=== PATIENT | male | born 1985 | race Caucasian/White ===

== ENCOUNTER 2016-06-04 15:20 | Emergency (ER) | payer BC, OTHER ==
[2016-06-04 16:19] VITALS: BP 151/90
--- NOTE | 2016-06-04 18:03 | UC ---
Ear Complaint HPI - HPI Summary HPI Summary: 30 male presents today complaining of ear pain that began last night 06/04/16. Patient has been suffering from intensely itchy ear canals for the past year that has gotten worse over the past month or so. He was seen by his PCP who diagnosed him with eczema of the cancal b/l. He was prescribed ciprodex and states the itching and flakey skin has subsided but he developed a new onset of inflammation, pain, decreased hearing in the right ear and vertigo. Patient states it feels like his ear is draining but it is not actively draining. Denies sensitive skin, asthma, allergies. States pain was 10/10 last night and this morning. He has been taking the prescribed Ciprodex and taking ibuprofen for the pain which does give him some relief. Denies tinnitus or discharge. Describes pain as throbbing and aching. Denies sore throat, cough, congestion difficulty breathing and chest pain. - History of Current Complaint Chief Complaint: UCEar Stated Complaint: EAR PAIN Time Seen by Provider: 06/04/16 17:08 Hx Obtained From: Patient Onset/Duration: Sudden Onset Severity Initially: Mild Severity Currently: Moderate Pain Intensity: 9 Pain Scale Used: 0-10 Numeric Alleviating Factors: OTC Meds - mild relief Associated Signs/Symptoms: Positive: Hearing Loss, Swelling @ - right ear canal , tenderness on palpation of external ear - Allergies/Home Medications Allergies/Adverse Reactions: Allergies Allergy/AdvReac Type Severity Reaction Status Date / Time [facility] Allergy Rash Verified 06/04/16 16:19 Sulfamethoxazole Allergy Rash Verified 06/04/16 16:19 w/Trimethoprim [From [facility]] Home Medications: Home Medications Ciproflox/Dexameth OTIC.SUSP* [Ciprodex Otic*] 1 drop .SEE ORDER 06/04/16 [ History] Ibuprofen TAB* [Advil TAB*] 800 mg PO PRN 06/04/16 [History] PMH/Surg Hx/FS Hx/Imm Hx - Surgical History Surgical History: Yes Surgery Procedure, Year, and Place: APPENDECTOMY, WISDOM TEETH - Family History Known Family History: Positive: None - Social History Alcohol Use: Occasionally Alcohol Amount: 2-3 DRINKS/WEEK Substance Use Type: None Smoking Status (MU): Never Smoked Tobacco Review of Systems Constitutional: Negative Skin: Negative Eyes: Negative ENT: Ear Ache Respiratory: Negative Cardiovascular: Negative Gastrointestinal: Negative Genitourinary: Negative Motor: Negative Neurovascular: Negative Musculoskeletal: Negative Neurological: Headache Psychological: Negative All Other Systems Reviewed And Are Negative: Yes Physical Exam Triage Information Reviewed: Yes Appearance: Well-Appearing, No Pain Distress, Well-Nourished Vital Signs: Initial Vital Signs Temp 97.9 F 06/04/16 16:14 Pulse 80 06/04/16 16:14 Resp 18 06/04/16 16:14 BP 151/90 06/04/16 16:14 Pulse Ox 100 06/04/16 16:14 Vital Signs Reviewed: Yes Eyes: Positive: Conjunctiva Clear ENT: Positive: Normal ENT inspection, Pharynx normal, TM bulging - exudative lesion noted on TM's bilateral. external canal of right ear drum erythematous and inflammed. no discharge or falkey skin noted in either canal. no perforation in TM's., TM dull, TM red, Other: - some decreased hearing on right side, described as muffled but able to hear.. Negative: Pharyngeal erythema, Nasal congestion, Tonsillar swelling, Tonsillar exudate Neck: Positive: Supple, Nontender, No Lymphadenopathy Respiratory: Positive: Chest non-tender, Lungs clear, Normal breath sounds, No respiratory distress Cardiovascular: Positive: RRR, No Murmur, Pulses Normal Musculoskeletal Exam: Normal Neurological Exam: Normal Psychological Exam: Normal Skin Exam: Normal Ear Complaint Course/Dx - Course Course Of Treatment: patient will be given oral antibiotics and treated for otitis media. told to continue taking ciprodex for the next day however if symptoms are not improving or worseing to discontinue the drops and continue oral antibiotic only. warm compresses were suggested. continue ibuprofen for pain and inflammation. aware of signs of allergic reaction to medications. follow up with ENT is encouraged. - Differential Dx/Diagnosis Differential Diagnosis/HQI/PQRI: Otitis Externa, Otitis Media Provider Diagnoses: otitis media b/l, otitis externa right ear, eczema of ear canals b/l - Physician Notifications Discussed Patient Care With: Dr Casillas also examined patient and discussed plan of care with him Discharge - Discharge Plan Condition: Stable Disposition: HOME Prescriptions: Amoxicillin SUSP* 500 mg PO BID #1 bottle Ciproflox/Dexameth OTIC.SUSP* [Ciprodex OTIC.SUSP*] 4 drop .SEE ORDER BID #1 btl Patient Education Materials: Otitis Externa (ED), Otitis Media (ED) Referrals: RADHA Madrigal [Primary Care Provider] - Additional Instructions: Take medication as prescribed. Continue taking OTC ibuprofen to help with pain and inflammation. Continue taking prescribed ciprodex for the remaining doses unless symptoms worsen and do not improve. Discontinue the drops at this time and just continue taking oral antibiotic. If symptoms do not improve or worsen please return to . Follow up with ENT or primary care provider.
== END 2016-06-04 18:08 | disposition home or self-care (01) ==
LOC: UCEAST 15:20
DX: H66.93 Otitis media, unspecified, bilateral (principal); H60.91 Unspecified otitis externa, right ear; L30.9 Dermatitis, unspecified; Z88.1 Allergy status to other antibiotic agents; Z88.2 Allergy status to sulfonamides
CPT/HCPCS: 99212; G0463

== ENCOUNTER 2018-05-04 17:10 | Emergency (ER) | payer BC ==
[2018-05-04 17:58] VITALS: BP 132/74
--- NOTE | 2018-05-04 19:33 | UC ---
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 No elbow / wrist pain now, but it did hurt last night. + intermittent dysesthesia R 4th / 5th fingers. Pain radiates to post shoulder. No point neck pain. No loc. Has been taking ibuprofen (limited d/t recent hx idania d/t volume depletion) / acetaminophen. Took a old oxycodone this am w/o relief. - History of Current Complaint Chief Complaint: UCUpperExtremity Stated Complaint: RIGHT SHOULDER INJURY Time Seen by Provider: 05/04/18 19:29 Hx Obtained From: Patient Pain Intensity: 3 - Allergy/Home Medications Allergies/Adverse Reactions: Allergies Allergy/AdvReac Type Severity Reaction Status Date / Time cefaclor [From [facility]] Allergy Rash Verified 05/04/18 17:51 sulfamethoxazole Allergy Rash Verified 05/04/18 17:51 [From [facility]] trimethoprim [From [facility]] Allergy Rash Verified 05/04/18 17:51 Home Medications: Home Medications oxyCODONE/Acetamin 5/325 MG* [Percocet 5/325 TAB*] 1 tab ONCE 05/04/18 [History Confirmed 05/04/18] PMH/Surg Hx/FS Hx/Imm Hx Previously Healthy: Yes - see hpi - Surgical History Surgical History: Yes Surgery Procedure, Year, and Place: WISDOM TEETH. EAR TUBES. TONSILECTOMY - Family History Known Family History: Positive: None - Social History Alcohol Use: Occasionally Alcohol Amount: 2-3 DRINKS/WEEK Substance Use Type: None Smoking Status (MU): Never Smoked Tobacco Review of Systems All Other Systems Reviewed And Are Negative: Yes Constitutional: Positive: Negative Skin: Positive: Negative Eyes: Positive: Negative ENT: Positive: Negative Respiratory: Positive: Negative Cardiovascular: Positive: Negative Gastrointestinal: Positive: Negative Genitourinary: Positive: Negative Motor: Positive: Other - see hpi Neurovascular: Positive: Other - see hpi Musculoskeletal: Positive: Other: - see hpi Neurological: Positive: Other - see hpi Psychological: Positive: Negative Is Patient Immunocompromised?: No Physical Exam Triage Information Reviewed: Yes Appearance: Well-Appearing - sitting up, conversing easily, Well-Nourished Vital Signs: Initial Vital Signs Temp 97.4 F 01/04/19 17:52 Pulse 77 05/04/18 17:52 Resp 18 05/04/18 17:52 BP 132/74 05/04/18 17:52 Pulse Ox 100 05/04/18 17:52 Vital Signs Reviewed: Yes Eye Exam: Normal - grossly normal ENT Exam: Normal Neck exam: Normal Neck: Positive: Supple, Nontender - no point neck tenderness Respiratory Exam: Normal Respiratory: Positive: Chest non-tender, Lungs clear, Normal breath sounds, No respiratory distress, No accessory muscle use Cardiovascular Exam: Normal Cardiovascular: Positive: RRR, No Murmur, Pulses Normal, Brisk Capillary Refill - correlates with radial pulse Course/Dx - Course Course Of Treatment: considered multiple differentials (including albeit not limited thoracic outlet syndrome). D/w pt xray - prelim report, aware that final report will be read tomorrow. Encouraged minimize use of shoulder until ok by Dr. Villanueva (orthopedic surgeon). Note written re PT. Declines work note , will let us or Dr. Villanueva know if he changes his mind. Questions as posed answered to the best of my ability. He will take otc analgesics, but minimizing nsaids. Dx shoulder sprain with intermittent neuropathy (d/w pt - this exact dx is not in [facility]). - Diagnoses Provider Diagnosis: Shoulder sprain Discharge - Sign-Out/Discharge Documenting (check all that apply): Patient Departure All imaging exams completed and their final reports reviewed: No - Discharge Plan Condition: Stable Disposition: HOME Patient Education Materials: Shoulder Sprain (ED) Forms: *Physical Education Release Referrals: Jed Pineda MD [Primary Care Provider] - Jed Villanueva MD [Medical Doctor] - Additional Instructions: Sling during the day as needed for comfort. Follow up with Dr. Villanueva THIS WEEK. Seek medical attention for worse or new problems. Follow up with warren Arrington. - Billing Disposition and Condition Condition: STABLE Disposition: Home
--- NOTE | 2018-05-07 09:43 | UC ---
- Progress Note Progress Note: Patient Name: NEIDA SMILEY Medical Record#: [id number] Ordering Physician: Bisi Gonzalez MD Acct.#: [id number] : 1985 Age: 32 Sex: M Location: [facility] Exam Date: 05/04/181950 ADM Status: DEP ER Order Information: SHOULDER RIGHT 2+ VWS Accession Number: [id number] CPT: 69848 INDICATION: Shoulder pain after a fall COMPARISON: None. TECHNIQUE: 4 views of the right shoulder were obtained. FINDINGS: The adequately corticated bones are in normal alignment. Joint spaces appear maintained. No fracture, dislocation or focal bony abnormality is seen. IMPRESSION: Normal radiograph of the right shoulder. If the patient's symptoms persist, follow-up imaging is recommended. R0 Preliminary Imaging Read R0 <Electronically signed by Vicente Lake MD in OV> 05/05/18738 Dictated By: Vicente Lake MD Dictated Date/Time: 05/05/18738 Transcribed Date/Time: 05/05/18737 Copy to: CC:Jed Pineda MD; Bisi Gonzalez MD Imaging - [facility] Imaging - [facility] [address] [place] [address] ph ([phone]) ph ([phone]) ph ([phone]) This report is only to be considered final once signed by the Provider(s) as displayed in the "<Electronically Signed by >" field (s). Absence of a signature indicates the report is in a draft status and still needs to be finalized. In the event this document was created by someone other than the signing Provider, the individual initiating the document will be listed in the "Entered by:" or "Dictated by:" ashraf. 1 of 1 Course/Dx - Diagnoses Provider Diagnoses: Shoulder sprain Discharge - Sign-Out/Discharge Documenting (check all that apply): Post-Discharge Follow Up All imaging exams completed and their final reports reviewed: Yes - Discharge Plan Condition: Stable Disposition: HOME Patient Education Materials: Shoulder Sprain (ED) Forms: *Physical Education Release Referrals: Jed Pineda MD [Primary Care Provider] - Jed Villanueva MD [Medical Doctor] - Additional Instructions: Sling during the day as needed for comfort. Follow up with Dr. Villanueva THIS WEEK. Seek medical attention for worse or new problems. Follow up with warren Arrington. - Billing Disposition and Condition Condition: STABLE Disposition: Home
== END 2018-05-04 20:49 | disposition home or self-care (01) ==
LOC: UCCORT 17:10
DX: S43.401A Unspecified sprain of right shoulder joint, initial encounter (principal); X58.XXXA Exposure to other specified factors, initial encounter; Y93.72 Activity, wrestling; Y92.9 Unspecified place or not applicable; Z88.1 Allergy status to other antibiotic agents
CPT/HCPCS: 99212; G0463

== ENCOUNTER 2019-05-23 07:46 | Day surgery (SDC) | payer BC ==
[~2019-05-23 07:46] MED LIST: Acetaminophen TAB* 325 MG PO PRN; Buffered Lidocaine 1% SYRIN* 1 ML/SYRINGE INTRADERM ONE; Dexamethasone TAB* 4 MG ONE; Dexamethasone TAB* 4 MG PO ONE; DiMENhydriNATE IV* 50 MG/ML VIAL IV PUSH PRN; Famotidine IV* 10 MG/ML 2 ML (20 mg) IV ONE; Famotidine IV* 10 MG/ML 2 ML (20 mg) ONE; HYDROmorphone INJ1* 1 MG/ML SYRINGE IV PRN; Lactated Ringers 1000 ML Bag* 1,000 ML IV SCH; Naloxone* 0.4 MG/ML 1 ML VIAL IV PRN; Ondansetron ODT TAB* 4 MG ONE; Ondansetron ODT TAB* 4 MG PO ONE; PROCHLORPERAZINE INJ 5 MG/ML 2 ML VIAL IV PRN; Scopolamine 1.5 mg* PATCH TRANSDERM PRN; fentaNYL* 50 MCG/ML 2 ML VIAL (100 MCG VIAL) IV PRN; oxyCODONE TAB* 5 MG TAB PO PRN
[2019-05-23] MEDS ORDERED: KETAMINE HCL* 50 MG/ML 10 ML VIAL ONE (08:37)
[2019-05-23] MEDS ORDERED: Midazolam* 1 MG/ML 5 ML VIAL (5 MG) ONE (08:37)
[2019-05-23] MEDS ORDERED: fentaNYL* 50 MCG/ML 2 ML VIAL (100 MCG VIAL) ONE (08:37)
[2019-05-23] MEDS ORDERED: Ketorolac INJ* 30 MG/ML 1 ML VIAL ONE (09:17)
[2019-05-23] MEDS ORDERED: Lidocaine 2% PF * 5 ML VIAL ONE (09:17)
[2019-05-23] MEDS ORDERED: Propofol* 10 MG/ML 20 ML BTL ONE (09:17)
[2019-05-23] MEDS ORDERED: Bupivacaine 0.25% SDV* 30 ML ONE (09:25)
[2019-05-23] MEDS ORDERED: HYDROcodone/ACETAMIN 5-325 MG* 1 TAB ONE (10:40)
[2019-05-23 10:47] VITALS: BP 136/61
--- NOTE | 2019-05-23 12:52 | OP ---
DATE OF OPERATION: 05/23/19 - [facility] DATE OF : 81 SURGEON: Jed Villanuvea MD RESEARCH ARCHAEOLOGIST: SARAH Peña. ANESTHESIOLOGIST: Dr. Aguilar. ANESTHESIA: General. PRE-OP DIAGNOSES: 1. Right carpal tunnel syndrome. 2. Right middle trigger finger. POST-OP DIAGNOSES: 1. Right carpal tunnel syndrome. 2. Right middle trigger finger. OPERATIVE PROCEDURES: 1. Right endoscopic carpal tunnel release. 2. Right middle trigger finger release. INDICATIONS: Mr. Cosme has the aforementioned conditions. We had talked about treatment options, risks and benefits. He wanted to proceed. ESTIMATED BLOOD LOSS: 2 mL. COMPLICATIONS: None. FINDINGS: See above and below. DESCRIPTION OF PROCEDURE: Mr. Cosme was seen in the preoperative holding area. The correct site, side, and procedures were identified. We came back to the operating room, the arm was prepped and draped in the usual fashion and a time-out was performed. The arm was exsanguinated with the Esmarch and the tourniquet inflated. I made an 1-cm transverse incision just ulnar to the palmaris longus tendon, just proximal to the wrist flexion crease. Dissection was carried down and I spread through the distal antebrachial fascia transversely. A two-prong skin hook was placed underneath the fascia. The carpal tunnel was then dilated open and then the MicroAire endoscopic carpal tunnel system was introduced. When I had it in the appropriate location, I elevated the blade and the release was carried out from distal to proximal. Once I completed the release distally, I placed a Isreal retractor and then confirmed the release distally. Everything was looking very good, it was completely released. The distal antebrachial fascia was then released proximally with the tenotomy scissors. The wound was irrigated out and closed with a 4-0 Prolene suture. I then made an 1-cm oblique incision utilizing the distal alcaraz crease. Over the middle finger A1 porfirio, full-thickness flaps were raised off the tendon sheath. Ragnell retractors were placed. A1 porfirio was incised longitudinally. The fascia was released proximally. I released 1 mm or 2 mm of the leading edge of the A2 porfirio. At this point, everything was looking good. The wound was irrigated out. Skin was closed with 4-0 nylon sutures. Soft dressings were applied and he was taken to the recovery room in stable condition. [id number]/[facility] #: [id number] VERONICA
[2019-05-26] MEDS ORDERED: Scopolamine PATCH Remove* 1 NOTE MISC PATCH OFF ONE (05:58)
== END 2019-05-23 11:00 | disposition home or self-care (01) ==
LOC: OREAST 07:46
PROVIDERS: ATTEND Orthopaedic Surgery Hand Surgery
DX: G56.01 Carpal tunnel syndrome, right upper limb (principal); M65.331 Trigger finger, right middle finger
CPT/HCPCS: A9270-GY; J1885; J2250; J2704; J3010; J3490; J8540

== ENCOUNTER 2019-06-06 08:11 | Day surgery (SDC) | payer BC ==
[~2019-06-06 08:11] MED LIST changes: -Acetaminophen TAB* 325 MG PO PRN; +Dexamethasone IV* 4 MG/ML 1 ML (4 MG) IV SLOW PU ONE; -Dexamethasone TAB* 4 MG ONE; -Dexamethasone TAB* 4 MG PO ONE; -DiMENhydriNATE IV* 50 MG/ML VIAL IV PUSH PRN; -Famotidine IV* 10 MG/ML 2 ML (20 mg) ONE; -HYDROmorphone INJ1* 1 MG/ML SYRINGE IV PRN; -Naloxone* 0.4 MG/ML 1 ML VIAL IV PRN; -Ondansetron ODT TAB* 4 MG ONE; -Ondansetron ODT TAB* 4 MG PO ONE; -PROCHLORPERAZINE INJ 5 MG/ML 2 ML VIAL IV PRN; -Scopolamine 1.5 mg* PATCH TRANSDERM PRN; -fentaNYL* 50 MCG/ML 2 ML VIAL (100 MCG VIAL) IV PRN; -oxyCODONE TAB* 5 MG TAB PO PRN
[2019-06-06] MEDS ORDERED: Ketorolac INJ* 30 MG/ML 1 ML VIAL IV PRN (08:57)
[2019-06-06] MEDS ORDERED: DiMENhydriNATE IV* 50 MG/ML VIAL IV PUSH PRN (08:57)
[2019-06-06] MEDS ORDERED: oxyCODONE/Acetamin 5/325 MG* TAB PO PRN (08:57)
[2019-06-06] MEDS ORDERED: Naloxone* 0.4 MG/ML 1 ML VIAL IV PRN (08:57)
[2019-06-06] MEDS ORDERED: fentaNYL* 50 MCG/ML 2 ML VIAL (100 MCG VIAL) IV PRN (08:57)
[2019-06-06] MEDS ORDERED: HYDROcodone/ACETAMIN 5-325 MG* 1 TAB PO PRN (08:57)
[2019-06-06] MEDS ORDERED: fentaNYL* 50 MCG/ML 2 ML VIAL (100 MCG VIAL) ONE (09:05)
[2019-06-06] MEDS ORDERED: Propofol* 10 MG/ML 20 ML BTL ONE (09:05)
[2019-06-06] MEDS ORDERED: Midazolam* 1 MG/ML 5 ML VIAL (5 MG) ONE (09:05)
[2019-06-06] MEDS ORDERED: Lidocaine 2% PF * 5 ML VIAL ONE (09:05)
[2019-06-06] MEDS ORDERED: Bupivacaine 0.25% SDV* 30 ML ONE (09:25)
[2019-06-06] MEDS ORDERED: Ondansetron INJ* 2 MG/ML VIAL ONE (11:08)
[2019-06-06] MEDS ORDERED: oxyCODONE/Acetamin 5/325 MG* TAB ONE (12:06)
[2019-06-06] MEDS ORDERED: Ketorolac INJ* 30 MG/ML 1 ML VIAL ONE (12:06)
[2019-06-06 12:34] VITALS: BP 127/89
--- NOTE | 2019-06-06 21:13 | OP ---
ATE OF OPERATION: 06/06/19 - [facility] DATE OF : 81 SURGEON: Jed Villanueva MD CERTIFIED [employer] IN HE[employer] CARE: SARAH Peña ANESTHESIOLOGIST: Dr. Marino. ANESTHESIA: Local MAC. PRE-OP DIAGNOSES: 1. Left carpal tunnel syndrome. 2. Left middle trigger finger. POST-OP DIAGNOSIS: 1. Left carpal tunnel syndrome. 2. Left middle trigger finger. OPERATIVE PROCEDURE: 1. Left endoscopic carpal tunnel release. 2. Left middle trigger finger release. INDICATIONS: Johnny has the trigger finger and the carpal tunnel syndrome and we did the release on the right, has done quite well. He presents today for release on the left of the two conditions. He understands there is risk associated with this. ESTIMATED BLOOD LOSS: 2 mL. COMPLICATIONS: None. FINDINGS: See above and below. DESCRIPTION OF PROCEDURE: Johnny was seen in the preoperative holding area. The correct site, side, and procedures were identified. We came back to the operating room. The arm was prepped and draped in the usual fashion and a time- out was performed. The arm was exsanguinated and the tourniquet inflated. I first made a 1 cm transverse incision just ulnar to the palmaris longus tendon. Dissection was carried down and the distal antebrachial fascia was split transversely with the tenotomy scissors. A two-prong skin hook was placed underneath the fascia. The carpal tunnel was dilated opened and then the MicroAire endoscopic carpal tunnel system was placed. With good visualization, the release was carried out from distal to proximal. Once I had confirmed the release distally, I released the distal antebrachial fascia proximally with the tenotomy scissors. At this point, everything was looking good. The wound was irrigated out and closed with 4-0 Prolene suture and a Steri-Strip. I then made a 1 cm incision in the distal palmar crease overlying the middle finger A1 porfirio. Dissection was carried down and full thickness flaps were raised off the tendon sheath. I incised the A1 porfirio longitudinally with a 15 blade. The fascia was released proximally. The A2 porfirio was preserved. Everything was looking good. The wound was irrigated out. The skin was closed with 4-0 nylon suture. 0.25% Marcaine was infiltrated, soft dressings were applied and he was taken to the recovery room in stable condition. [id number]/[facility] #: [id number] VERONICA
== END 2019-06-06 12:45 | disposition home or self-care (01) ==
LOC: OREAST 08:11
PROVIDERS: ATTEND Orthopaedic Surgery Hand Surgery
DX: G56.02 Carpal tunnel syndrome, left upper limb (principal); M65.332 Trigger finger, left middle finger; J45.909 Unspecified asthma, uncomplicated; E66.9 Obesity, unspecified
CPT/HCPCS: A9270-GY; J1885; J2250; J2405; J2704; J3010; J3490